=== PATIENT | male | born 1995 | race Caucasian/White ===

== ENCOUNTER 2016-12-01 10:31 | Emergency (ER) | payer BC ==
[2016-12-01 10:36] VITALS: BP 126/86; PULSE 69; TEMP 97.4; BMI 21.1
--- NOTE | 2016-12-01 10:51 | PDOC ---
History of Present Illness - General Chief Complaint: Injury Stated Complaint: I BROKE MY COLLARBONE History Source: Patient Exam Limitations: No Limitations - History of Present Illness Initial Comments: 12/01/16 11:00 21y M no pmhx presents with L collarbone pain. The pt states he was snowboarding yesterday, fell on his L shoulder and has been having pain especially when he is raising his L elbow/shoulder. Pt states overnight he had alittle tingling in his finger tips but has since resolved. No associated weakneses, tingling, numbness now. Pt has no other injuries denies headache, neck pain, back pain. Past History - Past Medical History Allergies/Adverse Reactions: Allergies Allergy/AdvReac Type Severity Reaction Status Date / Time No Known Allergies Allergy Verified 09/08/16 11:00 Home Medications: Ambulatory Orders NK [No Known Home Medication] 09/08/16 Other medical history: DENIES - Psycho/Social/Smoking Cessation Hx Anxiety: No Suicidal Ideation: No Smoking History: Never smoked Hx Alcohol Use: Yes Drug/Substance Use Hx: No Substance Use Type: Alcohol Review of Systems - Review of Systems Able to Perform ROS?: Yes Comments:: 12/01/16 11:01 Constitutional - no reported Fever, Chills, weakness, Respiratory: no reported cough, sob, hemoptysis Cardiac: no reported chest pain, palpitations, light headedness, leg swelling Abd/GI: no reported abd pain, nausea, vomiting, blood per rectum, melena, diarrhea Musculskelatal -+shoulder/clavical pain when moving no reported back pain, joint swelling skin - no reported bruising, erythema, rash neurological: +Tingling (Resolved) no reported headache, numbness, focal weakness, ataxia, weakness hematologic: no reported anemia, easy bruising, easy bleeding *Physical Exam - Vital Signs Last Vital Signs Temp Pulse Resp BP Pulse Ox 97.4 F L 69 16 126/86 12/01/16 10:34 12/01/16 10:34 12/01/16 10:34 12/01/16 10:34 - Physical Exam Comments: 12/01/16 11:02 GENERAL: The patient is awake, alert, and fully oriented, Nontoxic - in no acute distress. HEAD: Normocephalic, atraumatic. NECK: Normal range of motion, supple EXTREMITIES: +tenderness to the mid L clavical with mild swelling and crepitusno ecchymosis/tenting, limited range of motion of L shoulder, no edema. no tenderness or pain on ROM of L shoulder/elbow/wrist/hand NEUROLOGICAL: No facial assymetry, Normal speech, sensation intact in the UE, neurlogically intact, pulses intact and symmetric in the radials. SKIN: Warm, Dry, normal turgor, Medical Decision Making - Medical Decision Making 12/01/16 11:03 suspect clavicle fx no neuro symptoms will obtain xray tylenol as needed for pain 12/01/16 11:27 pts xray notd for nondisplaced mid claviclar fracture will place in a sling and have him fu with ortho pt has orthopedics up on mayur return precautinos were discussed I discussed the physical exam findings, ancillary test results and final diagnoses with the patient. I answered all of the patient's questions. The patient was satisfied with the care received and felt comfortable with the discharge plan and treatment plan. The patient will call their primary care physician within 24 hours to arrange follow-up and will return to the Emergency Department with any new, persistent or worsening symptoms. *DC/Admit/Observation/Transfer Diagnosis at time of Disposition: Clavicular fracture, closed, shaft Qualifiers: Encounter type: initial encounter Fracture alignment: nondisplaced Laterality: left Qualified Code(s): S42.025A - Nondisplaced fracture of shaft of left clavicle, initial encounter for closed fracture - Discharge Dispostion Disposition: HOME Condition at time of disposition: Stable Admit: No - Referrals Referrals: STAFF,NOT ON [Primary Care Provider] - Michele Jonas MD [Staff Physician] - - Patient Instructions Printed Discharge Instructions: DI for Clavicle Fracture-Adult Additional Instructions: Return to the emergency department immediately with ANY new, persistent or worsening symptoms including any chest pain, shortneses of breath, numbness/ tingling/weakness or any other concerns. Use your sling for comfort. Take tylenol as needed for your pain. You MUST call and follow up with your doctor tomorrow for further evaluation of your symptoms. Results were discussed with you. Please make sure your doctor reviews the results of your emergency evaluation. Print Language: BANGLADESHI
[2016-12-01] MEDS ORDERED: ACETAMINOPHEN 325 MG TABLET (FP) PO ONE (10:59)
[2016-12-01] MEDS ORDERED: ACETAMINOPHEN 325 MG TABLET (FP) ONE (11:04)
== END 2016-12-01 11:44 | disposition home or self-care (01) ==
LOC: FER 10:31
DX: S42.025A Nondisplaced fracture of shaft of left clavicle, initial encounter for closed fracture (principal); W17.81XA Fall down embankment (hill), initial encounter; Y93.59 Activity, other involving other sports and athletics played individually; Y92.9 Unspecified place or not applicable
CPT/HCPCS: 73000-TC-LT; 99282-25